=== PATIENT | male | born 1955 | race Two or more races ===

== ENCOUNTER 2019-09-30 19:39 | Emergency (ER) | payer OTHER ==
[~2019-09-30] VITALS: Ht 172.7 cm; Wt 117.9 kg
[~2019-09-30 19:39] MED LIST: ASPIRIN81 MG PO; ATORVASTATIN CA20 MG PO; FLECAINIDE ACE100 MG PO; METOPROLOL SUCC25 MG PO
--- OUTSIDE RECORDS SUMMARY | 2019-09-30 19:43 | XMS REPORT ---
Author Author [facility] Address Unknown Phone Unavailable Care Team Providers Care Ac/Dc Rewinder Name Role Phone Unavailable Unavailable Problems This patient has no known problems. Allergies, Adverse Reactions, Alerts This patient has no known allergies or adverse reactions. Medications This patient has no known medications. Encounters Start Date/Time End Date/Time Encounter Type Admission Type Attending Clinicians Care Facility Care Department Encounter ID 2019-09-12 08:52:00 2019-09-12 08:52:00 Outpatient [id number] 2018-12-18 07:42:00 2018-12-18 07:42:00 Emergency E [facility] [id number]
--- NOTE | 2019-09-30 21:33 | Diagnostic Imaging Report ---
EXAMINATION: CXR 2 VIEW - HOPD INDICATION: Fever, nausea COMPARISON: None FINDINGS: TUBES and LINES: None. LUNGS: Normal lung volumes. Lungs are clear. No consolidations. PLEURA: No pleural effusion or pneumothorax. HEART AND MEDIASTINUM: The cardiomediastinal silhouette is unremarkable. BONES AND SOFT TISSUES: Degenerative changes in the spine and shoulders. Soft tissues are unremarkable. UPPER ABDOMEN: No free air under the diaphragm. There are cholecystectomy clips. IMPRESSION: No acute thoracic radiographic abnormality. Signed by: Prasanth Ramirez DO on 09/30/2019 9:30 PM
--- NOTE | 2019-09-30 21:35 | NUR ---
ALL TEST RESULTS. INFORMED PT
[2019-09-30 21:53] VITALS: BP 137/88
== END 2019-09-30 21:52 | disposition home or self-care (01) ==
LOC: FSED 19:39
DX: R11.0 Nausea (principal); E78.5 Hyperlipidemia, unspecified; Z90.49 Acquired absence of other specified parts of digestive tract
CPT/HCPCS: 71046; 93005; 99283